=== PATIENT | female | born 2000 | race Two or more races ===

== ENCOUNTER 2024-06-06 14:06 | Emergency (ER) | payer OTHER ==
[~2024-06-06] VITALS: Ht 160 cm; Wt 68.0 kg
[2024-06-06] MEDS ORDERED: TETANUS & DIPHTHERIA TOX,ADULT 0.5 ML VIAL IM ONE (14:45)
[2024-06-06] MEDS ORDERED: LIDOCAINE HCL 1% 10ML VIAL IJ ONE (14:45)
[2024-06-06] MEDS ORDERED: LIDOCAINE HCL 1% 10ML VIAL ONE (15:28)
[2024-06-06] MEDS ORDERED: DIPHTH,PERTUSS(ACELL),TET VAC 0.5 ML SYRINGE IM ONE (15:29)
[2024-06-06] MEDS ORDERED: CIPRO500 MG PO (16:22)
[2024-06-06] MEDS ORDERED: CEFTRIAXONE SODIUM 1,000 MG VIAL ONE (16:36)
[2024-06-06] MEDS ORDERED: CEFTRIAXONE SODIUM 1,000 MG VIAL IM ONE (16:45)
== END 2024-06-06 16:42 ==
LOC: ER 14:06
DX: S71.122A Laceration with foreign body, left thigh, initial encounter (principal); Y93.18 Activity, surfing, windsurfing and boogie boarding; Y93.89 Activity, other specified; Y92.89 Other specified places as the place of occurrence of the external cause
CPT/HCPCS: 12005; 90471; 90714; J1670